=== PATIENT | male | born 1950 | race Caucasian/White ===

== ENCOUNTER 2017-08-09 10:24 | Observation (INO) | payer MEDICARE, OTHER ==
[2017-08-09 10:40] VITALS: RESP 18
[2017-08-09] MEDS ORDERED: SODIUM CHLORIDE 0.9% 500 ML IV ONE (11:10)
--- NOTE | 2017-08-09 11:40 | CT ---
EXAMINATION TYPE: CT brain wo con DATE OF EXAM: 08/09/2017 COMPARISON: None. HISTORY: Patient complains of blurry vision, dizziness, and dysphasia. CT DLP: 759.6 mGycm Automated exposure control for dose reduction was used. TECHNIQUE: CT scan of the head is performed without contrast. FINDINGS: There is no acute intracranial hemorrhage or midline shift identified. Punctate old left thalamic lacunar injury is seen. There is diffuse ventricular and sulcal prominence consistent with d iffuse age-related cerebral atrophy. There is low-attenuation in the periventricular white matter co nsistent with chronic small vessel ischemic change. No suspicious extra-axial fluid collection. The globes are intact and the visualized sinuses are clear. IMPRESSION: 1. No acute intracranial hemorrhage or midline shift. 2. Moderate burden nonspecific white matter change and old left punctate thalamic lacunar injury.
--- NOTE | 2017-08-09 11:53 | XR ---
EXAMINATION TYPE: XR chest 2V DATE OF EXAM: 08/09/2017 COMPARISON: 04/23/2014 CT chest HISTORY: Altered mental status, weakness, and dizziness. TECHNIQUE: Frontal and lateral views of the chest are obtained. FINDINGS: There is no focal air space opacity, pleural effusion, or pneumothorax seen. The cardiac silhouette size is within normal limits. The osseous structures are intact. Limited inspiration on the lateral view creates crowding of the pulmonary vasculature. Moderate multilevel degenerative [place]we[place] ges of the thoracic spine are noted. IMPRESSION: No acute cardiopulmonary process.
[2017-08-09 12:05] LABS: Basophils % (A) 0 %; Eosinophils # (A) 0.1 k/uL (0-0.7); Eosinophils % (A) 0 %; HCT 46.5 % (39.0-53.0); HGB 15.5 gm/dL (13.0-17.5); Lymphocytes # (A) 0.7 k/uL (1.0-4.8); Lymphocytes % (A) 6 %; MCH 31.4 pg (25.0-35.0); MCHC 33.4 g/dL (31.0-37.0); MCV 94.3 fL (80.0-100.0); Mean Platelet Volume 7.6; Monocytes # (A) 0.4 k/uL (0-1.0); Monocytes % (A) 4 %; Neutrophils # (A) 10.4 k/uL (1.3-7.7); Neutrophils % (A) 89 %; Platelet Count 174 k/uL (150-450); RBC 4.93 m/uL (4.30-5.90); RDW 13.7 % (11.5-15.5); WBC 11.6 k/uL (3.8-10.6)
[2017-08-09 12:20] LABS: Prothrombin Time 10.1 sec (9.0-12.0)
[2017-08-09 12:21] LABS: Albumin 3.9 g/dL (3.5-5.0); Calcium 9.3 mg/dL (8.4-10.2); Potassium 4.8 mmol/L (3.5-5.1); Total Bilirubin 0.5 mg/dL (0.2-1.3); Total Protein 6.6 g/dL (6.3-8.2)
[2017-08-09 12:32] LABS: Partial Thromboplastin Time 19.9 sec (22.0-30.0)
[2017-08-09] MEDS ORDERED: ONDANSETRON 4 MG/2 ML VIAL IVP PRN (14:02)
[2017-08-09] MEDS ORDERED: NALOXONE 0.4 MG/ML 1 ML VIAL IV PRN (14:02)
[2017-08-09] MEDS ORDERED: ACETAMINOPHEN TAB 325 MG TAB PO PRN (14:02)
--- NOTE | 2017-08-09 14:02 | ED ---
Altered Mental Status HPI - General Chief Complaint: Altered Mental Status Stated Complaint: weakness Time Seen by Provider: 08/09/17 11:03 Source: patient Mode of arrival: wheelchair Limitations: no limitations - History of Present Illness Initial Comments: X-ray 7 years old male presents with a confusion and unsteady gait and generalized weakness he feels that he is drowning he said he can't talk right Flank right he denies any chest pain no shortness of breath no abdominal pain no frequency urgency dysuria no particular weakness of her left or right upper or lower extremities he said he is generally weak all over - Related Data Home Medications Medication Instructions Recorded Confirmed ALPRAZolam [Xanax] 0.25 mg PO DAILY 10/16/13 08/09/17 Montelukast [Singulair] 10 mg PO DAILY 10/16/13 08/09/17 Ezetimibe [Zetia] 10 mg PO DAILY 08/09/17 08/09/17 Losartan Potassium [Cozaar] 25 mg PO DAILY 08/09/17 08/09/17 metFORMIN HCL [Glucophage] 500 mg PO BID 08/09/17 08/09/17 tiZANidine HCL [Zanaflex] 2 mg PO DAILY PRN 08/09/17 08/09/17 Allergies Allergy/AdvReac Type Severity Reaction Status Date / Time procaine [From Novocain] AdvReac Confusion Verified 08/09/17 11:15 dandilions Allergy Cough Uncoded 08/09/17 10:40 taiwanese thissles Allergy Cough Uncoded 08/09/17 10:40 Review of Systems ROS Statement: Those systems with pertinent positive or pertinent negative responses have been documented in the HPI. ROS Other: All systems not noted in ROS Statement are negative. Past Medical History Past Medical History: GERD/Reflux, Hyperlipidemia, Hypertension History of Any Multi-Drug Resistant Organisms: None Reported Past Surgical History: No Surgical Hx Reported Past Psychological History: No Psychological Hx Reported Smoking Status: Never smoker Past Alcohol Use History: Rare Past Drug Use History: None Reported - Past Family History Mother Family Medical History: Diabetes Mellitus Additional Family Medical History / Comment(s): UTI's Father Family Medical History: Coronary Artery Disease (CAD) Additional Family Medical History / Comment(s): at age 78 unknown cause. General Exam Limitations: no limitations Course Vital Signs 08/09/17 08/09/17 10:36 12:35 Temperature 98.6 F Pulse Rate 78 77 Respiratory 18 18 Rate Blood Pressure 101/64 116/72 O2 Sat by Pulse 93 L 98 Oximetry EKG is normal sinus ventricular rate 75 MO interval is 162 QRS duration is 88 QT /QTC 368/437 review of this EKG does not reveal any ST elevation or ST depressio 70 is reassessed at 1400, her white count, her CBC, INR, comprehensive metabolic panel, troponin, EKG, head CT are normal chest x-ray ruled out any infiltrate UA is pending he still confused E he is GCS is fine but he said he feels like he is not all the air if that he has a hard time getting his words out and he is very dizzy considering that he can admit him to Dr. Jacome's service (Even MRI and neurology consult and instrument 40 Medical Decision Making - Lab Data Result diagrams: 08/09/17 11:45 08/09/17 11:45 Lab Results 08/09/17 08/09/17 08/09/17 Range/Units 11:45 11:45 11:45 WBC 11.6 H (3.8-10.6) k/uL RBC 4.93 (4.30-5.90) m/uL Hgb 15.5 (13.0-17.5) gm/dL Hct 46.5 (39.0-53.0) % MCV 94.3 (80.0-100.0) fL MCH 31.4 (25.0-35.0) pg MCHC 33.4 (31.0-37.0) g/dL RDW 13.7 (11.5-15.5) % Plt Count 174 (150-450) k/uL Neutrophils % 89 % Lymphocytes % 6 % Monocytes % 4 % Eosinophils % 0 % Basophils % 0 % Neutrophils # 10.4 H (1.3-7.7) k/uL Lymphocytes # 0.7 L (1.0-4.8) k/uL Monocytes # 0.4 (0-1.0) k/uL Eosinophils # 0.1 (0-0.7) k/uL Basophils # 0.0 (0-0.2) k/uL PT 10.1 (9.0-12.0) sec INR 1.0 (<1.2) APTT 19.9 L (22.0-30.0) sec Sodium 142 (137-145) mmol/L Potassium 4.8 (3.5-5.1) mmol/L Chloride 107 (98-107) mmol/L Carbon Dioxide 24 (22-30) mmol/L Anion Gap 11 mmol/L BUN 27 H (9-20) mg/dL Creatinine 1.17 (0.66-1.25) mg/dL Est GFR (CKD-EPI)AfAm 75 (>60 ml/min/1.73 sqM) Est GFR (CKD-EPI)NonAf 65 (>60 ml/min/1.73 sqM) Glucose 152 H (74-99) mg/dL Calcium 9.3 (8.4-10.2) mg/dL Total Bilirubin 0.5 (0.2-1.3) mg/dL AST 31 (17-59) U/L ALT 36 (21-72) U/L Alkaline Phosphatase 45 (38-126) U/L Troponin I (0.000-0.034) ng/mL Total Protein 6.6 (6.3-8.2) g/dL Albumin 3.9 (3.5-5.0) g/dL 08/09/17 Range/Units 11:45 WBC (3.8-10.6) k/uL RBC (4.30-5.90) m/uL Hgb (13.0-17.5) gm/dL Hct (39.0-53.0) % MCV (80.0-100.0) fL MCH (25.0-35.0) pg MCHC (31.0-37.0) g/dL RDW (11.5-15.5) % Plt Count (150-450) k/uL Neutrophils % % Lymphocytes % % Monocytes % % Eosinophils % % Basophils % % Neutrophils # (1.3-7.7) k/uL Lymphocytes # (1.0-4.8) k/uL Monocytes # (0-1.0) k/uL Eosinophils # (0-0.7) k/uL Basophils # (0-0.2) k/uL PT (9.0-12.0) sec INR (<1.2) APTT (22.0-30.0) sec Sodium (137-145) mmol/L Potassium (3.5-5.1) mmol/L Chloride (98-107) mmol/L Carbon Dioxide (22-30) mmol/L Anion Gap mmol/L BUN (9-20) mg/dL Creatinine (0.66-1.25) mg/dL Est GFR (CKD-EPI)AfAm (>60 ml/min/1.73 sqM) Est GFR (CKD-EPI)NonAf (>60 ml/min/1.73 sqM) Glucose (74-99) mg/dL Calcium (8.4-10.2) mg/dL Total Bilirubin (0.2-1.3) mg/dL AST (17-59) U/L ALT (21-72) U/L Alkaline Phosphatase (38-126) U/L Troponin I <0.012 (0.000-0.034) ng/mL Total Protein (6.3-8.2) g/dL Albumin (3.5-5.0) g/dL Disposition Clinical Impression: Confusion, Unsteady gait Disposition: ADMITTED IP TO THIS HOSP Condition: Good Referrals: Annmarie Jacome MD [Primary Care Provider] - 1-2 days
[2017-08-09] MEDS ORDERED: ASPIRIN 81 MG PO STA (14:12)
[2017-08-09 14:19] LABS: Appearance,Urine Clear (Clear); Bilirubin,Urine Negative (Negative); Blood,Urine Negative (Negative); Color,Urine Yellow; Glucose,Urine (UA) 1+ (Negative); Ketones,Urine Negative (Negative); Leukocyte Esterase,Urine Negative (Negative); Nitrite,Urine Negative (Negative); PH, Urine 5.5 (5.0-8.0); Protein,Urine Trace (Negative); Specific Gravity,Urine 1.024 (1.001-1.035); Urobilinogen,Urine <2.0 mg/dL (<2.0)
[2017-08-09 14:28] LABS: Amphetamine Screen,Urine Not Detected (NotDetected); Barbiturate Screen,Urine Not Detected (NotDetected); Benzodiazepines Screen,Urine Detected (NotDetected); Cocaine Screen,Urine Not Detected (NotDetected); Methadone Screen, Urine Not Detected (NotDetected); Opiate Screen,Urine Detected (NotDetected); Oxycodone Screen, Urine Not Detected (NotDetected); Phencyclidine Screen,Urine Not Detected (NotDetected); Tricyclic Antidepressant,Urine Not Detected (NotDetected); Urn Cannabinoid Scrn Detected (NotDetected)
[2017-08-09 16:35] LABS: Cholesterol 168 mg/dL (<200); HDL Cholesterol 34 mg/dL (40-60); LDL Cholesterol,Calculated 95 mg/dL (0-99); Triglycerides 196 mg/dL (<150)
--- NOTE | 2017-08-09 16:37 | P.CONS ---
History of Present Illness - Reason for Consult Consult date: 08/09/17 Altered mental status - Chief Complaint Ataxia and AMS - History of Present Illness This is a pleasant 67-year-old male being evaluated by the neurology service for confusion and unsteady gait. He woke about 4:00 this morning to use the bathroom. He found it difficult to walk due to disequilibrium and problems with coordination. He also reports being somewhat confused. This does not resolve he was brought to [facility] emergency room. He denies any falls or loss of consciousness. He denies any lateralizing weakness. His EKG showed a normal sinus rhythm with no evidence of ischemia. He had a mildly elevated white count at 11.6, but otherwise his lab work showed no significant abnormalities. However, his tox screen did show positive for opiates, benzodiazepines and marijuana. Initial CT of the brain showed no evidence of acute infarct. However, it did show diffuse age-related cerebral atrophy, small vessel ischemic changes, and an old left punctate thalamic lacunar infarct. Note that the patient was not aware of this. At the time of my exam he is resting comfortably in bed in no acute distress. Review of Systems Constitutional: Reports as per HPI Past Medical History Past Medical History: GERD/Reflux, Hyperlipidemia, Hypertension History of Any Multi-Drug Resistant Organisms: None Reported Past Surgical History: No Surgical Hx Reported Past Psychological History: No Psychological Hx Reported Smoking Status: Never smoker Past Alcohol Use History: Rare Past Drug Use History: None Reported - Past Family History Mother Family Medical History: Diabetes Mellitus Additional Family Medical History / Comment(s): UTI's Father Family Medical History: Coronary Artery Disease (CAD) Additional Family Medical History / Comment(s): at age 78 unknown cause. Medications and Allergies Home Medications Medication Instructions Recorded Confirmed Type ALPRAZolam [Xanax] 0.25 mg PO DAILY 10/16/13 08/09/17 History Montelukast [Singulair] 10 mg PO DAILY 10/16/13 08/09/17 History Ezetimibe [Zetia] 10 mg PO DAILY 08/09/17 08/09/17 History Losartan Potassium [Cozaar] 25 mg PO DAILY 08/09/17 08/09/17 History metFORMIN HCL [Glucophage] 500 mg PO BID 08/09/17 08/09/17 History tiZANidine HCL [Zanaflex] 2 mg PO DAILY PRN 08/09/17 08/09/17 History Allergies Allergy/AdvReac Type Severity Reaction Status Date / Time procaine [From Novocain] AdvReac Confusion Verified 08/09/17 11:15 dandilions Allergy Cough Uncoded 08/09/17 10:40 taiwanese thissles Allergy Cough Uncoded 08/09/17 10:40 Physical Exam Vitals: Vital Signs Temp Pulse Resp BP Pulse Ox 08/09/17 15:04 98.7 F 82 18 127/75 96 08/09/17 14:01 87 18 129/71 96 08/09/17 12:35 77 18 116/72 98 08/09/17 10:36 98.6 F 78 18 101/64 93 L Intake and Output 08/09/17 08/09/17 08/09/17 06:59 14:59 22:59 Other: Weight 99.79 kg - Constitutional General appearance: cooperative, no acute distress, obese - EENT Eyes: no abnormal pupil, EOMI, PERRLA, no ptosis ENT: hearing grossly normal - Neck Neck: normal ROM, no rigidity - Respiratory Respiratory: negative: prolonged expiration, prolonged inspiration - Cardiovascular Rhythm: regular - Gastrointestinal Mild left lower quadrant tenderness General gastrointestinal: no distended, tenderness - Neurologic The patient is alert awake and oriented 3. Speech and language are normal. There is no facial asymmetry. Strength is 5 out of 5 in bilateral upper and lower extremities. There is no sensory deficit. No tremors or seizures are seen. Cranial nerves II through XII are intact globally. There is no dysmetria or dysdiadochokinesia. Her is no pronator drift. Results CBC & Chem 7: 08/09/17 11:45 08/09/17 11:45 Labs: Abnormal Lab Results - Last 24 Hours (Table) 08/09/17 08/09/17 08/09/17 Range/Units 11:45 11:45 11:45 WBC 11.6 H (3.8-10.6) k/uL Neutrophils # 10.4 H (1.3-7.7) k/uL Lymphocytes # 0.7 L (1.0-4.8) k/uL APTT 19.9 L (22.0-30.0) sec BUN 27 H (9-20) mg/dL Glucose 152 H (74-99) mg/dL Urine Protein (Negative) Urine Glucose (UA) (Negative) Urine Opiates Screen (NotDetected) U Benzodiazepines Scrn (NotDetected) U Marijuana (THC) Screen (NotDetected) 08/09/17 08/09/17 Range/Units 13:55 13:55 WBC (3.8-10.6) k/uL Neutrophils # (1.3-7.7) k/uL Lymphocytes # (1.0-4.8) k/uL APTT (22.0-30.0) sec BUN (9-20) mg/dL Glucose (74-99) mg/dL Urine Protein Trace H (Negative) Urine Glucose (UA) 1+ H (Negative) Urine Opiates Screen Detected H (NotDetected) U Benzodiazepines Scrn Detected H (NotDetected) U Marijuana (THC) Screen Detected H (NotDetected) Assessment and Plan (1) Old lacunar stroke without late effect Current Visit: Yes Status: Chronic Code(s): Z86.73 - PRSNL HX OF TIA (TIA), AND CEREB INFRC W/O RESID DEFICITS SNOMED Code(s): 285035555 (2) Hypertension Current Visit: Yes Status: Chronic Code(s): I10 - ESSENTIAL (PRIMARY) HYPERTENSION SNOMED Code(s): 51980074 (3) Confusion Current Visit: Yes Status: Resolved Code(s): R41.0 - DISORIENTATION, UNSPECIFIED SNOMED Code(s): 100695628 (4) Unsteady gait Current Visit: Yes Status: Resolved Code(s): R26.81 - UNSTEADINESS ON FEET SNOMED Code(s): 64750749 (5) Diabetes Current Visit: Yes Status: Chronic Code(s): E11.9 - TYPE 2 DIABETES MELLITUS WITHOUT COMPLICATIONS SNOMED Code(s): 76862795 (6) Dyslipidemia Current Visit: Yes Status: Chronic Code(s): E78.5 - HYPERLIPIDEMIA, UNSPECIFIED SNOMED Code(s): 899449598 Plan: The patient may have suffered an episode of transient cerebral ischemia. His symptoms seem to be resolved at this time. However, he does say he notices that his speech is slower than normal. There is no jose dysarthria or language problem. I will consult speech therapy. Recommend PT and OT evaluation. I have ordered MRI of the brain. Cardiac echo has been ordered. Given his finding of old stroke we will likely switch him to Plavix. I will await MRI results. I'll order fasting lipid panel. He is on Zetia at this time. Would recommend a statin preferably Lipitor, but since he is on Zetia this may indicate he has some intolerance to statins. If there is no intolerance we can change him to a statin. Otherwise continue neurological checks continue the rest your workup. His confusion and gait abnormalities could certainly have been from his use of marijuana, benzodiazepines, and opiates. He has been on these for quite some time so other etiologies must be ruled out. Recommend discontinuation of marijuana and limiting his use of other sedating substances on an as-needed basis only. Continue to follow I have performed a history and physical on the above patient. I have reviewed the above note, and agree.
[2017-08-09 16:53] LABS: Glucose,Whole Blood 111 mg/dL (75-99)
[2017-08-09] MEDS: SODIUM CHLORIDE 0.9% 1,000 ML IV SCH ×2 (19:22→20:03)
[2017-08-09] MEDS: INSULIN ASPART 100 UNIT/ML 1 ML 10 ML VIAL SQ SCH (20:02)
[2017-08-09] MEDS: metFORMIN 500 MG TAB PO SCH (20:03)
[2017-08-09 20:37] LABS: Glucose,Whole Blood 127 mg/dL (75-99)
--- NOTE | 2017-08-09 21:19 | MR ---
EXAMINATION TYPE: MR brain wo con DATE OF EXAM: 08/09/2017 COMPARISON: 04/21/2011 HISTORY: AMS, blurry vision, dizziness, and dysphasia Standard multiplanar, multisequence MRI departmental protocol Multiplanar, multisequence images of the brain were acquired. Diffusion weighted imaging was performe d. FINDINGS: There is mild diffuse cerebral cortical atrophy. There is no mass effect nor midline shift. There is no sign of intracranial hemorrhage. Brainstem is intact. Sella turcica appears normal. Ther e are scattered white matter high signal foci at the subcortical: White matter of both cerebral hemis pheres. The largest is 2 x 1 cm in the right parietal lobe. Pleural number is less than 15. Most of t he lesions are less than 5 mm. Sella turcica appears normal. The brainstem is intact. IMPRESSION: Scattered subcortical white matter lesions are also present on the old MR scan and appear only minima lly increased. These are consistent with chronic small vessel ischemia. No evidence of a cortical inf arct.
[2017-08-10 05:49] LABS: Glucose,Whole Blood 114 mg/dL (75-99)
[2017-08-10] MEDS: INSULIN ASPART 100 UNIT/ML 1 ML 10 ML VIAL SQ SCH ×2 (06:07→15:34)
--- NOTE | 2017-08-10 08:11 | US ---
EXAMINATION TYPE: US carotid duplex BILAT DATE OF EXAM: 08/10/2017 COMPARISON: NONE CLINICAL HISTORY: 67-year-old male Pain. Headache, dizziness TECHNIQUE: Carotid duplex ultrasound examination. Indirect Doppler criteria was utilized. FINDINGS: EXAM MEASUREMENTS: RIGHT: Peak Systolic Velocity (PSV) cm/sec ----- Right CCA: 65.1 ----- Right ICA: 62.5 ----- Right ECA: 75.7 ICA/CCA ratio: 0.9 RIGHT: End Diastole cm/sec ----- Right CCA: 15.5 ----- Right ICA: 20.8 ----- Right ECA: 10.9 LEFT: Peak Systolic Velocity (PSV) cm/sec ----- Left CCA: 67.7 ----- Left ICA: 51.5 ----- Left ECA: 95.1 ICA/CCA ratio: 0.9 LEFT: End Diastole cm/sec ----- Left CCA: 11.1 ----- Left ICA: 17.6 ----- Left ECA: 12.8 VERTEBRALS (direction of flow): Right Vertebral: Antegrade Left Vertebral: Antegrade Rhythm: Normal Childhood Development Teacher notes: Mild amount of plaque visualized. No elevated velocities. No significant stenosis. IMPRESSION: No hemodynamically significant stenosis appreciated in either internal carotid artery. Criteria for Assigning % of Stenosis / Diameter reduction (Estimation based on the indirect measurements of the internal carotid artery velocities (ICA PSV). 1. Normal (no stenosis)=ICA PSV < 125 cm/s: ratio < 2.0: ICA EDV<40 cm/s. 2. Less than 50% stenosis=ICA PSV < 125 cm/s: ratio < 2.0: ICA EDV<40 cm/s. 3. 50 to 69% stenosis=ICA PSV of 125 to 230 cm/s: ration 2.0 ? 4.0: ICA EDV 40-100 cm/s. 4. Greater than 70% stenosis to near occlusion= ICA PSV > 230 cm/s: ratio > 4.0: ICA EDV > 100 cm/s. 5. Near occlusion= ICA PSV velocities may be low or undetectable: variable ratio and ICA EDV. 6. Total occlusion=unable to detect flow.
[2017-08-10] MEDS ORDERED: MONTELUKAST 10 MG TAB PO SCH (09:00)
[2017-08-10] MEDS ORDERED: ALPRAZolam 0.25 MG TAB PO SCH (09:00)
[2017-08-10] MEDS ORDERED: LOSARTAN 25 MG TAB PO SCH (09:00)
[2017-08-10] MEDS ORDERED: EZETIMIBE 10 MG TAB PO SCH (09:00)
--- NOTE | 2017-08-10 10:10 | ECHOF ---
Referral Reason:TIA MEASUREMENTS -------- HEIGHT: 170.2 cm WEIGHT: 99.8 kg BP: IVSd: 1.0 cm (0.6 - 1.1) LVIDd: 3.8 cm (3.9 - 5.3) LVPWd: 1.2 cm (0.6 - 1.1) IVSs: 1.3 cm LVIDs: 2.3 cm LVPWs: 1.3 cm Ao Diam: 3.7 cm (2.0 - 3.7) AV Cusp: 1.6 cm (1.5 - 2.6) LA Diam: 3.4 cm (2.7 - 3.8) MV E Iggy: 0.71 m/s MV DecT: 125 ms MV A Iggy: 0.57 m/s MV E/A Ratio: 1.24 RAP: 5.00 mmHg RVSP: 21.33 mmHg FINDINGS -------- Sinus rhythm. This was a technically difficult study with suboptimal views. The left ventricular size is normal. Left ventricular wall thickness is normal. Overall left vent ricular systolic function is normal with, an EF between 55 - 60 %. The right ventricle is normal in size. The left atrium is normal in size. The right atrium is normal in size. xx ml of Lumason was utilized for enhancement of images. The aortic valve is trileaflet and appears structurally normal. There is trace mitral regurgitation. Trace tricuspid regurgitation present. The right ventricular systolic pressure, as measured by Dopp ler, is 21.33mmHg. Pulmonic valve appears structurally normal. The aortic root size is normal. The pericardium is normal. CONCLUSIONS -------- 1. Sinus rhythm. 2. This was a technically difficult study with suboptimal views. 3. The left ventricular size is normal. 4. Left ventricular wall thickness is normal. 5. Overall left ventricular systolic function is normal with, an EF between 55 - 60 %. 6. The right ventricle is normal in size. 7. The left atrium is normal in size. 8. The right atrium is normal in size. 9. xx ml of Lumason was utilized for enhancement of images. 10. The aortic valve is trileaflet and appears structurally normal. 11. There is trace mitral regurgitation. 12. Trace tricuspid regurgitation present. 13. The right ventricular systolic pressure, as measured by Doppler, is 21.33mmHg. 14. Pulmonic valve appears structurally normal. 15. The aortic root size is normal. 16. The pericardium is normal. SPLITTER TENDER: Yulia Gaytan RDCS
[2017-08-10] MEDS ORDERED: CLOPIDOGREL 75 MG TAB PO SCH (10:15)
[2017-08-10] MEDS: metFORMIN 500 MG TAB PO SCH (11:08)
[2017-08-10] MEDS: SODIUM CHLORIDE 0.9% 1,000 ML IV SCH (11:08)
[2017-08-10 11:29] LABS: Glucose,Whole Blood 133 mg/dL (75-99)
[2017-08-10 11:41] VITALS: TEMP 98.3
[2017-08-10 14:06] LABS: Hemoglobin A1C 6.1 % (4.0-6.0)
--- NOTE | 2017-08-10 15:16 | P.PN ---
Subjective Progress Note Date: 08/10/17 Principal diagnosis: Altered mental status This pleasant 87-year-old male continue be evaluated by the neurology service. Recall that he had an episode of confusion and ataxia about 4:00 the other morning. Symptoms did resolve. Initial CT of the brain showed no evidence of acute infarct. Subsequent MRI of the brain showed no acute intracranial abnormalities. His CT did show an old left punctate thalamic lacunar infarct. At time my exam he is resting comfortably in bed. He has no new neurological symptoms. And his above stated symptoms have resolved. His carotid Doppler showed no hemodynamically significant stenosis. Objective - Vital Signs Vital signs: Vital Signs Temp 98.3 F 08/10/17 08:00 Pulse 85 08/10/17 11:41 Resp 18 08/10/17 04:00 BP 126/67 08/10/17 08:00 Pulse Ox 97 08/10/17 08:00 Intake & Output 08/09/17 08/10/17 08/10/17 18:59 06:59 18:59 Intake Total 260 480 780 Output Total 800 Balance 260 -320 780 Weight 99.79 kg 98.1 kg Intake: Intake, IV Titration 20 300 Amount Sodium Chloride 0.9% 1, 20 300 000 ml @ 100 mls/hr IV . Q10H EDUARDO Rx#:[id number] Oral 240 480 480 Output: Urine 800 Other: Voiding Method Urinal # Voids 2 # Bowel Movements 0 - Constitutional General appearance: Present: cooperative, no acute distress - EENT Eyes: Present: EOMI, PERRLA. Absent: abnormal pupil, ptosis ENT: Present: hearing grossly normal - Neck Neck: Present: normal ROM. Absent: rigidity - Respiratory Respiratory: negative: prolonged expiration, prolonged inspiration - Cardiovascular Rhythm: regular - Gastrointestinal General gastrointestinal: Absent: distended - Neurologic Neurologic Comment(s): The patient is alert awake and oriented 3. Speech and language are normal. There is no facial asymmetry. Strength is 5 out of 5 in bilateral upper and lower extremities. There is no sensory deficit. No tremors or seizures are seen. Cranial nerves II through XII are intact globally. - Labs CBC & Chem 7: 08/09/17 11:45 08/09/17 11:45 Labs: Abnormal Lab Results - Last 24 Hours (Table) 08/09/17 08/09/17 08/09/17 Range/Units 11:45 11:45 16:25 POC Glucose (mg/dL) 111 H (75-99) mg/dL Hemoglobin A1c 6.1 H (4.0-6.0) % Triglycerides 196 H (<150) mg/dL HDL Cholesterol 34 L (40-60) mg/dL 08/09/17 08/10/17 08/10/17 Range/Units 20:34 05:46 11:24 POC Glucose (mg/dL) 127 H 114 H 133 H (75-99) mg/dL Hemoglobin A1c (4.0-6.0) % Triglycerides (<150) mg/dL HDL Cholesterol (40-60) mg/dL Assessment and Plan (1) Old lacunar stroke without late effect Current Visit: Yes Status: Chronic Code(s): Z86.73 - PRSNL HX OF TIA (TIA), AND CEREB INFRC W/O RESID DEFICITS SNOMED Code(s): 481802214 (2) Hypertension Current Visit: Yes Status: Chronic Code(s): I10 - ESSENTIAL (PRIMARY) HYPERTENSION SNOMED Code(s): 90896429 (3) Confusion Current Visit: Yes Status: Resolved Code(s): R41.0 - DISORIENTATION, UNSPECIFIED SNOMED Code(s): 716890129 (4) Unsteady gait Current Visit: Yes Status: Resolved Code(s): R26.81 - UNSTEADINESS ON FEET SNOMED Code(s): 50950857 (5) Diabetes Current Visit: Yes Status: Chronic Code(s): E11.9 - TYPE 2 DIABETES MELLITUS WITHOUT COMPLICATIONS SNOMED Code(s): 54555603 (6) Dyslipidemia Current Visit: Yes Status: Chronic Code(s): E78.5 - HYPERLIPIDEMIA, UNSPECIFIED SNOMED Code(s): 174184017 (7) TIA (transient ischemic attack) Current Visit: Yes Status: Acute Code(s): G45.9 - TRANSIENT CEREBRAL ISCHEMIC ATTACK, UNSPECIFIED SNOMED Code(s): 764622559 Plan: The patient has suffered an episode of transient cerebral ischemia. His symptoms seem to be resolved at this time. I have discussed with him the results of his MRI of the brain and carotid Doppler. Given his finding of old stroke I suggest switching him to Plavix. He is on Zetia at this time. Would recommend a statin preferably Lipitor, but since he is on Zetia this may indicate he has some intolerance to statins. His confusion and gait abnormalities could certainly have been from his use of marijuana, benzodiazepines, and opiates. He has been on these for quite some time so other etiologies must be ruled out. Recommend discontinuation of marijuana and limiting his use of other sedating substances on an as-needed basis only. He is otherwise cleared from neurological standpoint. I have performed a history and physical on the above patient. I have reviewed the above note, and agree.
[2017-08-10 17:06] VITALS: BP 104/71; PULSE 73
[2017-08-10 17:12] LABS: Glucose,Whole Blood 101 mg/dL (75-99)
--- NOTE | 2017-08-10 17:47 | P.HPIM ---
History of Present Illness H&P Date: 08/10/17 Chief Complaint: Altered mentation, can't remember how to put clothes on, weakness This will serve both the H&P and discharge summary This is a 67-year-old pleasant gentleman well-known to my practice. He has underlying history of hyperlipidemia, COPD, osteoarthritis, CAD admitted to the hospital secondary to acute mental status changes. 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 Patient had issues regarding neck pain and back pain for which she does not take any opiates for this however unable of him he could just place with marijuana the day prior to his mental status changes.' Patient was subsequently seen in emergency room, carotid Dopplers failed to reveal any hemodynamically significant carotid stenosis, patient was seen by neurology for which MRI of the brain was ordered, patient was seen by Dr. Cleo pedraza group, MRI showing scattered subcortical white matter lesions present in the old MR on the appearing minimally increased consistent with chronic small vessel ischemia no evidence of cortical infarct an EKG shows normal sinus rhythm with ST wave changes Review of Systems Constitutional: Reports as per HPI, Denies anorexia, Denies chills, Denies chronic headaches, Denies chronic pain, Denies daytime sleepiness, Denies fatigue, Denies fever, Denies lethargy, Denies malaise, Denies night sweats, Denies poor appetite, Denies sweats, Denies weakness, Denies weight gain, Denies weight loss Eyes: denies as per HPI, denies blurred vision, denies bulging eye, denies loss of vision, denies tunnel vision/blind spots Ears, nose, mouth and throat: Reports as per HPI, Denies ant. neck pain, Denies bleeding gums, Denies dental pain, Denies dysphagia, Denies epistaxis, Denies headache, Denies hoarseness, Denies mouth pain, Denies nasal congestion, Denies nasal discharge, Denies neck fullness/pressure, Denies neck lump, Denies nose pain, Denies odynophagia, Denies post-nasal drip, Denies sinus pain, Denies sinus pressure, Denies swelling in mouth, Denies swelling in throat, Denies sore throat, Denies vertigo, Denies voice changes Cardiovascular: Reports as per HPI, Denies chest pain, Denies claudication, Denies decreased exercise tolerance, Denies dyspnea on exertion, Denies edema, Denies high blood pressure, Denies irregular heart beat, Denies leg edema, Denies lightheadedness, Denies orthopnea, Denies palpitations, Denies paroxysmal nocturnal dyspnea, Denies phlebitis, Denies rapid heart beat, Denies shortness of breath, Denies syncope Respiratory: Reports as per HPI, Denies congestion, Denies cough, Denies cough with sputum, Denies dyspnea, Denies excessive sputum, Denies hemoptysis, Denies home oxygen, Denies pain, Denies pain on inspiration, Denies pleurisy, Denies respiratory infections, Denies sleep apnea, Denies snoring, Denies wheezing Gastrointestinal: Reports constipation Genitourinary: Reports as per HPI Musculoskeletal: Reports as per HPI, Reports low back pain Integumentary: Reports as per HPI, Denies acne, Denies boils, Denies brittle nails, Denies change in hair/nails, Denies color changes, Denies darkening of skin, Denies depigmentation, Denies dryness, Denies foot/leg ulcers, Denies growths, Denies hirsutism, Denies lesions, Denies onychomycosis, Denies pruritus , Denies rash, Denies sores, Denies striae, Denies unusual bruising, Denies wounds Neurological: Reports as per HPI, Reports motor disturbance, Denies aphasia, Denies ataxia, Denies balance difficulties, Denies burning pain, Denies change in mentation, Denies change in smell/taste, Denies change in speech, Denies confusion, Denies convulsions, Denies double vision, Denies gait dysfunction, Denies head injury, Denies headaches, Denies hearing difficulties, Denies lack of coordination, Denies loss of vision, Denies memory loss, Denies migraines, Denies numbness, Denies paralysis, Denies paresthesias, Denies seizures, Denies sensory deficit, Denies spasticity, Denies syncope, Denies tic, Denies tingling , Denies transient paralysis, Denies tremors, Denies vertigo, Denies weakness, Denies visual changes Psychiatric: Reports as per HPI, Denies anhedonia, Denies anxiety, Denies anxiety attacks, Denies change in appetite, Denies change in libido, Denies change in sleep habits, Denies confusion, Denies depression, Denies difficulty concentrating, Denies disorientation, Denies hallucinations, Denies hopelessness , Denies hypersomnia, Denies insomnia, Denies irritability, Denies memory loss, Denies mood swings, Denies paranoia, Denies sadness/tearfulness, Denies sleep disturbances, Denies suicidal ideation Endocrine: Reports as per HPI, Denies cold intolerance, Denies deepening of the voice, Denies excessive sweating, Denies excessive thirst, Denies fatigue, Denies flushing, Denies heat intolerance, Denies high blood sugars, Denies increase in ring/shoe/hat size, Denies low blood sugars, Denies nocturia, Denies palpitations, Denies polydipsia, Denies polyphagia, Denies polyuria, Denies proptosis, Denies recent glucocorticoid use, Denies thyroid mass, Denies weight change Hematologic/Lymphatic: Reports as per HPI, Denies easy bleeding, Denies easy bruising, Denies lymphadenopathy, Denies lymphedema, Denies thrombophilia Allergic/Immunologic: Reports as per HPI Past Medical History Past Medical History: GERD/Reflux, Hyperlipidemia, Hypertension History of Any Multi-Drug Resistant Organisms: None Reported Past Surgical History: No Surgical Hx Reported Past Psychological History: No Psychological Hx Reported Smoking Status: Never smoker Past Alcohol Use History: Rare Past Drug Use History: None Reported - Past Family History Mother Family Medical History: Diabetes Mellitus Additional Family Medical History / Comment(s): UTI's Father Family Medical History: Coronary Artery Disease (CAD) Additional Family Medical History / Comment(s): at age 78 unknown cause. Medications and Allergies Home Medications Medication Instructions Recorded Confirmed Type ALPRAZolam [Xanax] 0.25 mg PO DAILY 10/16/13 08/09/17 History Montelukast [Singulair] 10 mg PO DAILY 10/16/13 08/09/17 History Ezetimibe [Zetia] 10 mg PO DAILY 08/09/17 08/09/17 History Losartan Potassium [Cozaar] 25 mg PO DAILY 08/09/17 08/09/17 History metFORMIN HCL [Glucophage] 500 mg PO BID 08/09/17 08/09/17 History tiZANidine HCL [Zanaflex] 2 mg PO DAILY PRN 08/09/17 08/09/17 History Clopidogrel [Plavix] 75 mg PO DAILY #30 tab 08/10/17 Rx Diclofenac Sodium Gel [Voltaren 2 gm TOPICAL QID #1 tube 08/10/17 Rx Gel] Allergies Allergy/AdvReac Type Severity Reaction Status Date / Time procaine [From Novocain] AdvReac Confusion Verified 08/09/17 11:15 dandilions Allergy Cough Uncoded 08/09/17 10:40 [place] thissles Allergy Cough Uncoded 08/09/17 10:40 Physical Exam Vitals: Vital Signs Temp Pulse Resp BP Pulse Ox 08/10/17 16:00 73 104/71 97 08/10/17 11:41 85 08/10/17 08:00 98.3 F 83 126/67 97 08/10/17 04:00 98 F 78 16 118/74 94 L 08/10/17 00:00 97.8 F 64 16 109/56 97 08/09/17 20:00 97.8 F 68 16 125/70 96 Intake and Output 08/10/17 08/10/17 08/10/17 06:59 14:59 22:59 Intake Total 480 780 Output Total 450 Balance 30 780 Intake: Intake, IV Titration 300 Amount Sodium Chloride 0.9% 1, 300 000 ml @ 100 mls/hr IV . [facility] Rx#:[id number] Oral 480 480 Output: Urine 450 Other: Voiding Method Urinal # Voids 2 1 # Bowel Movements 0 Weight 98.1 kg - EENT Eyes: anicteric sclerae, EOMI, PERRLA, dentition normal, normal appearance ENT: NA/AT, normal oropharynx - Neck Neck: no lymphadenopathy, normal ROM, no other, no rigidity, no stridor, no thyromegaly - Respiratory Respiratory: bilateral: CTA, negative: diminished, dullness, rales, rhonchi - Cardiovascular Rhythm: regular Heart sounds: normal: S1, S2 Abnormal Heart Sounds: no systolic murmur, no diastolic murmur, no rub, no S3 Gallop, no S4 Gallop, no click, no other - Gastrointestinal General gastrointestinal: normal bowel sounds, soft - Integumentary Integumentary: normal - Neurologic Neurologic: CNII-XII intact - Musculoskeletal Musculoskeletal: gait normal, strength equal bilaterally - Psychiatric Psychiatric: A&O x's 3, appropriate affect, intact judgment & insight Results CBC & Chem 7: 08/09/17 11:45 08/09/17 11:45 Labs: Abnormal Lab Results - Last 24 Hours (Table) 08/09/17 08/09/17 08/10/17 Range/Units 11:45 20:34 05:46 POC Glucose (mg/dL) 127 H 114 H (75-99) mg/dL Hemoglobin A1c 6.1 H (4.0-6.0) % 08/10/17 08/10/17 Range/Units 11:24 17:06 POC Glucose (mg/dL) 133 H 101 H (75-99) mg/dL Hemoglobin A1c (4.0-6.0) % Laboratory Results WBC 11.6 k/uL (3.8-10.6) H 08/09/17 11:45 RBC 4.93 m/uL (4.30-5.90) 08/09/17 11:45 Hgb 15.5 gm/dL (13.0-17.5) 08/09/17 11:45 Hct 46.5 % (39.0-53.0) 08/09/17 11:45 MCV 94.3 fL (80.0-100.0) 08/09/17 11:45 MCH 31.4 pg (25.0-35.0) 08/09/17 11:45 MCHC 33.4 g/dL (31.0-37.0) 08/09/17 11:45 RDW 13.7 % (11.5-15.5) 08/09/17 11:45 Plt Count 174 k/uL (150-450) 08/09/17 11:45 Neutrophils % 89 % 08/09/17 11:45 Lymphocytes % 6 % 08/09/17 11:45 Monocytes % 4 % 08/09/17 11:45 Eosinophils % 0 % 08/09/17 11:45 Basophils % 0 % 08/09/17 11:45 Neutrophils # 10.4 k/uL (1.3-7.7) H 08/09/17 11:45 Lymphocytes # 0.7 k/uL (1.0-4.8) L 08/09/17 11:45 Monocytes # 0.4 k/uL (0-1.0) 08/09/17 11:45 Eosinophils # 0.1 k/uL (0-0.7) 08/09/17 11:45 Basophils # 0.0 k/uL (0-0.2) 08/09/17 11:45 PT 10.1 sec (9.0-12.0) 08/09/17 11:45 INR 1.0 (<1.2) 08/09/17 11:45 APTT 19.9 sec (22.0-30.0) L 08/09/17 11:45 Sodium 142 mmol/L (137-145) 08/09/17 11:45 Potassium 4.8 mmol/L (3.5-5.1) 08/09/17 11:45 Chloride 107 mmol/L (98-107) 08/09/17 11:45 Carbon Dioxide 24 mmol/L (22-30) 08/09/17 11:45 Anion Gap 11 mmol/L 08/09/17 11:45 BUN 27 mg/dL (9-20) H 08/09/17 11:45 Creatinine 1.17 mg/dL (0.66-1.25) 08/09/17 11:45 Est GFR (CKD-EPI)AfAm 75 (>60 ml/min/1.73 sqM) 08/09/17 11:45 Est GFR (CKD-EPI)NonAf 65 (>60 ml/min/1.73 sqM) 08/09/17 11:45 Glucose 152 mg/dL (74-99) H 08/09/17 11:45 POC Glucose (mg/dL) 101 mg/dL (75-99) H 08/10/17 17:06 POC Glu [employer] KAREL Kaitlyn Graf 08/10/17 17:[address] Glu mg/dL 128 08/09/17 11:45 Hemoglobin A1c 6.1 % (4.0-6.0) H 08/09/17 11:45 Calcium 9.3 mg/dL (8.4-10.2) 08/09/17 11:45 Total Bilirubin 0.5 mg/dL (0.2-1.3) 08/09/17 11:45 AST 31 U/L (17-59) 08/09/17 11:45 ALT 36 U/L (21-72) 08/09/17 11:45 Alkaline Phosphatase 45 U/L (38-126) 08/09/17 11:45 Troponin I <0.012 ng/mL (0.000-0.034) 08/09/17 11:45 Total Protein 6.6 g/dL (6.3-8.2) 08/09/17 11:45 Albumin 3.9 g/dL (3.5-5.0) 08/09/17 11:45 Triglycerides 196 mg/dL (<150) H 08/09/17 11:45 Cholesterol 168 mg/dL (<200) 08/09/17 11:45 LDL Cholesterol, Calc 95 mg/dL (0-99) 08/09/17 11:45 HDL Cholesterol 34 mg/dL (40-60) L 08/09/17 11:45 Urine Color Yellow 08/09/17 13:55 Urine Appearance Clear (Clear) 08/09/17 13:55 Urine pH 5.5 (5.0-8.0) 08/09/17 13:55 Ur Specific [place] 1.024 (1.001-1.035) 08/09/17 13:55 Urine Protein Trace (Negative) H 08/09/17 13:55 Urine Glucose (UA) 1+ (Negative) H 08/09/17 13:55 Urine Ketones Negative (Negative) 08/09/17 13:55 Urine Blood Negative (Negative) 08/09/17 13:55 Urine Nitrite Negative (Negative) 08/09/17 13:55 Urine Bilirubin Negative (Negative) 08/09/17 13:55 Urine Urobilinogen <2.0 mg/dL (<2.0) 08/09/17 13:55 Ur Leukocyte Esterase Negative (Negative) 08/09/17 13:55 Urine Opiates Screen Detected (NotDetected) H 08/09/17 13:55 Ur Oxycodone Screen Not Detected (NotDetected) 08/09/17 13:55 Urine Methadone Screen Not Detected (NotDetected) 08/09/17 13:55 Ur Propoxyphene Screen Not Detected (NotDetected) 08/09/17 13:55 Ur Barbiturates Screen Not Detected (NotDetected) 08/09/17 13:55 U Tricyclic Antidepress Not Detected (NotDetected) 08/09/17 13:55 Ur Phencyclidine Scrn Not Detected (NotDetected) 08/09/17 13:55 Ur Amphetamines Screen Not Detected (NotDetected) 08/09/17 13:55 U Methamphetamines Scrn Not Detected (NotDetected) 08/09/17 13:55 U Benzodiazepines Scrn Detected (NotDetected) H 08/09/17 13:55 Urine Cocaine Screen Not Detected (NotDetected) 08/09/17 13:55 U Marijuana (THC) Screen Detected (NotDetected) H 08/09/17 13:55 Thrombosis Risk Factor Assmnt - DVT/VTE Prophylaxis DVT/VTE Prophylaxis: Pharmacologic Prophylaxis ordered - Choose All That Apply Each Factor Represents 1 point: Obesity (BMI >25) Each Risk Factor Represents 2 Points: Age 61-74 years Thrombosis Risk Factor Assessment Total Risk Factor Score: 3 Thrombosis Risk Factor Assessment Level: Moderate Risk Assessment and Plan Plan: 1. Acute TIA, was likely related to a combination of things, including heat exhaustion, experimental use off marijuana laced cookies for pain as offered to him by his friend, presenting with dysmetria, resolved, and difficulty in executing dressing mechanism resolved on discharge, patient was seen by Dr. Akins group 4 with MRI of the brain failed to reveal any acute CVA changes, carotid failed to reveal any significant stenosis, EKG was normal with no arrhythmias aspirin changed to Plavix 75 mg daily 2. Hyperlipidemia on area 10 mg, patient cannot tolerate most of the statins we' ve initiated, 2. Diabetes mellitus type 2, on metformin 500 mg daily. Losartan 25 mg daily 4. COPD/Reactive airway with asthma symptomatic, on by mouth when necessary, albuterol when necessary, and Singulair when necessary 5. Lumbar disc disease or short arthritis, treatment will be focused in detail an outpatient, need EMG of the lower extremities should there be any imbalance and gait and sciatica-like symptoms Toradol gel to be applied to the lumbar area when necessary 6. 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
--- NOTE | 2017-08-12 17:50 | EEG ---
ELECTROENCEPHALOGRAM REPORT DATE OF SERVICE: 08/09/2017. REASON FOR TESTING: Altered mental status. DESCRIPTION OF THE PROCEDURE: This EEG was performed using a 21 channel digital electroencephalograph, following international 10-20 system. DESCRIPTION OF THE RECORDING: From the beginning of the tracing, and with patient's eyes closed, the background rhythm was mostly consisting of 9 Hz alpha frequency in the posterior occipital leads. No obvious asymmetry is seen. Occasional movement artifacts are seen. Photic stimulation was performed with a minimal driving response seen. No pathological waves were elicited. Hyperventilation was not performed. The patient does reach stage II of sleep during the tracing and occasional sleep spindles are seen. No epileptiform discharges were seen. INTERPRETATION: This asleep and awake EEG can be considered within normal limits. There was no asymmetry seen. No epileptiform discharges were noticed. The absence of epileptiform discharges does not rule out the diagnosis of epilepsy; therefore clinical correlation is recommended. MMFIDELIA / EDDA: [id number] /
== END 2017-08-10 18:40 | disposition home or self-care (01) ==
LOC: EC 10:24 → 6SEL 14:03
PROVIDERS: ADMIT Family Medicine; ATTEND Family Medicine
DX: G45.9 Transient cerebral ischemic attack, unspecified (principal); T67.5XXA Heat exhaustion, unspecified, initial encounter; F12.90 Cannabis use, unspecified, uncomplicated; E78.5 Hyperlipidemia, unspecified; J44.9 Chronic obstructive pulmonary disease, unspecified; E11.22 Type 2 diabetes mellitus with diabetic chronic kidney disease; I12.9 Hypertensive chronic kidney disease with stage 1 through stage 4 chronic kidney disease, or unspecified chronic kidney disease; N18.3 Chronic kidney disease, stage 3 (moderate); M51.9 Unspecified thoracic, thoracolumbar and lumbosacral intervertebral disc disorder; E66.9 Obesity, unspecified; Z68.33 Body mass index [BMI] 33.0-33.9, adult; Z82.49 Family history of ischemic heart disease and other diseases of the circulatory system; K21.9 Gastro-esophageal reflux disease without esophagitis; D72.829 Elevated white blood cell count, unspecified; M19.90 Unspecified osteoarthritis, unspecified site; I25.10 Atherosclerotic heart disease of native coronary artery without angina pectoris; M54.9 Dorsalgia, unspecified; M54.2 Cervicalgia; X30.XXXA Exposure to excessive natural heat, initial encounter; Z88.8 Allergy status to other drugs, medicaments and biological substances; Z79.84 Long term (current) use of oral hypoglycemic drugs; Z91.048 Other nonmedicinal substance allergy status; Z79.899 Other long term (current) drug therapy; Z79.02 Long term (current) use of antithrombotics/antiplatelets; Z86.73 Personal history of transient ischemic attack (TIA), and cerebral infarction without residual deficits
CPT/HCPCS: 99285 ×2; 96360 ×2; 36415; 95816; 93005; 97161; 97165; 92610; 92523; 80061; 80053; 84484; 85025; 85610; 85730; 81003; 80306; 83036; 71046; 93880; 70450; 70551; G0378 ×2; C8929; Q9950; 93306

== ENCOUNTER → 2017-12-31 | Outpatient (CLI) | payer MEDICARE ==
--- NOTE | 2018-01-01 06:08 | MR ---
EXAMINATION TYPE: MR lumbar spine wo con DATE OF EXAM: 12/31/2017 COMPARISON: NONE HISTORY: Lumbago with sciatica per order. Low back pain causing left leg weakness per patient. TECHNIQUE: Multiplanar, multisequence imaging of the lumbar spine is performed without IV contrast. FINDINGS: Sagittal images of the lumbar spine show vertebral body heights to appear satisfactory. The re is subtle grade 1 anterolisthesis of L5-S1. Multilevel disc desiccation with mild to moderate mul tilevel disc space narrowing is present. Multilevel small posterior disc herniations are seen on sagi ttal images. The conus medullaris is normal in position and signal in the inferior L1 level. The bon e marrow signal intensity is overall heterogeneous. Axial images show the T12-L1 level to appear within normal limits. Axial images at the L1-L2 level mild facet arthropathy bilaterally with tiny central disc protrusion minimally effacing the anterior thecal sac. Bilateral neural foramina are patent. Axial images at L2-L3 level showed broad based posterior disc protrusion effacing the anterior thecal sac and causing mild bilateral anterior-inferior temporal foraminal narrowing. Axial images at L3-L4 level shows mild broad-based disc bulge minimally effacing the anterior thecal sac and causing mild bilateral anterior inferior neural foraminal narrowing. Axial images at L4-L5 level shows mild to moderate facet degenerative changes bilaterally. There is m ild to moderate broad disc bulge effacing the anterior thecal sac and causing mild to moderate bilate ral anterior inferior neural foraminal narrowing. Axial images at L5-S1 level shows moderate to advanced facet degenerative changes bilaterally. There is spondylolisthesis and broad disc bulge. Spinal canal is preserved as there is prominent epidural f at at this level. There is moderate to advanced bilateral inferior neural foraminal narrowing, right greater than left with encroachment on the inferior margin right L5 nerve seen on sagittal image 10. No suspicious incidental retroperitoneal findings are seen. IMPRESSION: Multilevel degenerative changes in the lumbar spine most prominent lower lumbar levels as detailed above.
== END | disposition home or self-care (01) ==
LOC: RADMRIMAIN 17:50
PROVIDERS: ATTEND Family Medicine
DX: M51.36 Other intervertebral disc degeneration, lumbar region (principal); M12.9 Arthropathy, unspecified; M51.26 Other intervertebral disc displacement, lumbar region; M48.061 Spinal stenosis, lumbar region without neurogenic claudication; M43.17 Spondylolisthesis, lumbosacral region
CPT/HCPCS: 72148